=== PATIENT | female | born 1940 | race Two or more races ===

== ENCOUNTER 2019-02-21 11:49 | Inpatient (IN) | payer MEDICARE ==
[~2019-02-21] VITALS: Ht 162.6 cm; Wt 92.1 kg
[2019-02-21 04:00] VITALS: BP 83/36
[2019-02-21] MEDS ORDERED: ONDANSETRON HCL 4MG/2ML INJ IV ONE (13:15)
[2019-02-21] MEDS ORDERED: SODIUM CHLORIDE 0.9% 1,000 ML IV ONE (13:15)
[2019-02-21 13:24] LABS: HEMATOCRIT. 41.6 % (36.0-48.0); HEMOGLOBIN. 13.9 g/dL (12.0-16.0); MEAN CORPUSCULAR HEMOGLOBIN 31.3 pg (28.0-32.0); MEAN CORPUSCULAR VOLUME 93.5 fL (81.0-99.0); MEAN PLATELET VOLUME 9.2 fl (7.4-10.4); PLATELET 204 x1000/uL (130-400); RED BLOOD CELL COUNT 4.45 mill/uL (4.2-5.4); RED CELL DISTRIBUTION WIDTH 13.3 % (11.6-14.6)
[2019-02-21 13:26] LABS: CHLORIDE 109 mEq/L (98-107)
[2019-02-21 13:31] LABS: PROTHROMBIN TIME 10.2 sec (9.6-11.0)
[2019-02-21 14:13] LABS: PLATELET ESTIMATE NORMAL
[2019-02-21 16:35] LABS: CLARITY URINE CLEAR (CLEAR); COLOR URINE YELLOW (YELLOW); KETONES URINE NEGATIVE (NEGATIVE); LEUKOCYTE ESTERASE URINE 1+ (NEGATIVE); NITRITE URINE POSITIVE (NEGATIVE); OCCULT BLOOD URINE NEGATIVE (NEGATIVE); PROTEIN URINE NEGATIVE (NEGATIVE); SPECIFIC GRAVITY URINE 1.024 (1.005-1.030)
[2019-02-21] MEDS ORDERED: LEVOFLOXACIN 500MG PREMIX 100 ML IV ONE (17:15)
[2019-02-21] MEDS ORDERED: HYDROCODONE/ACETAMINOPHEN 5/325MG TABLET PO PRN (18:00)
[2019-02-21] MEDS ORDERED: MAGNESIUM/ALUMINUM HYDROXIDE/SIMETHICONE 30ML UDC PO PRN (18:00)
[2019-02-21] MEDS ORDERED: DOCUSATE SODIUM 100MG CAPSULE PO PRN (18:00)
[2019-02-21] MEDS ORDERED: CLONIDINE 0.1MG TABLET PO PRN (18:00)
[2019-02-21] MEDS ORDERED: ONDANSETRON HCL 4MG/2ML INJ IV PRN (18:00)
[2019-02-21] MEDS ORDERED: IOHEXOL-300 100 ML BOTTLE ONE (20:46)
[2019-02-21 22:58] VITALS: BP 130/72
[2019-02-22 01:30] VITALS: BP 116/37
[2019-02-22 04:00] VITALS: BP 83/36
[2019-02-22] MEDS: ACETAMINOPHEN 325MG TABLET PO PRN (04:00)
[2019-02-22 07:55] VITALS: BP 97/47
[2019-02-22 08:20] LABS: CHLORIDE 108 mEq/L (98-107)
[2019-02-22 08:26] LABS: HEMATOCRIT. 32.6 % (36.0-48.0); MEAN CORPUSCULAR HEMOGLOBIN 31.1 pg (28.0-32.0); MEAN PLATELET VOLUME 9.2 fl (7.4-10.4); PLATELET 164 x1000/uL (130-400); RED BLOOD CELL COUNT 3.55 mill/uL (4.2-5.4); RED CELL DISTRIBUTION WIDTH 13.2 % (11.6-14.6)
[2019-02-22] MEDS: SODIUM CHLORIDE 0.45% 1,000 ML IV SCH ×2 (09:46)
[2019-02-22] MEDS: ASPIRIN 81MG EC TABLET PO SCH (10:12)
[2019-02-22 12:00] VITALS: BP 102/45
[2019-02-22 16:00] VITALS: BP 112/54
[2019-02-22 17:12] LABS: PLATELET ESTIMATE NORMAL
[2019-02-22] MEDS ORDERED: LEVOFLOXACIN 500MG PREMIX 100 ML IV SCH ×2 (18:00→20:00)
[2019-02-22 20:00] VITALS: BP 118/59
[2019-02-22] MEDS: FAMOTIDINE 20MG TABLET PO SCH (21:32)
[2019-02-23] VITALS: BP 120/57
[2019-02-23] MEDS: ACETAMINOPHEN 325MG TABLET PO PRN (00:58)
[2019-02-23] MEDS: SODIUM CHLORIDE 0.45% 1,000 ML IV SCH ×2 (03:52→11:00)
[2019-02-23 04:00] VITALS: BP 151/82
[2019-02-23 07:13] LABS: BASOPHILS % 0.2 % (0.0-2.0); EOSINOPHILS % 0.7 % (0.0-5.0); HEMOGLOBIN. 11.4 g/dL (12.0-16.0); LYMPHOCYTES % 14.8 % (20.0-50.0); MEAN CORPUSCULAR HEMOGLOBIN 30.9 pg (28.0-32.0); MEAN CORPUSCULAR VOLUME 92.1 fL (81.0-99.0); MEAN PLATELET VOLUME 8.8 fl (7.4-10.4); MONOCYTES % 8.5 % (2.0-8.0); NEUTROPHILS % 75.8 % (40.0-76.0); PLATELET 149 x1000/uL (130-400); RED BLOOD CELL COUNT 3.69 mill/uL (4.2-5.4); RED CELL DISTRIBUTION WIDTH 13.1 % (11.6-14.6)
[2019-02-23 07:58] VITALS: BP 126/46
[2019-02-23 08:29] LABS: CHLORIDE 110 mEq/L (98-107)
[2019-02-23 08:38] LABS: TOTAL IRON BINDING CAPACITY 254 ug/dL (250-450)
[2019-02-23] MEDS: FAMOTIDINE 20MG TABLET PO SCH (08:58)
[2019-02-23] MEDS: ASPIRIN 81MG EC TABLET PO SCH (08:58)
[2019-02-23 10:20] VITALS: BP 126/41
== END 2019-02-23 11:40 | disposition home or self-care (01) | DRG 872 ==
LOC: ER 11:49 → SUPCPDRO 17:58 → 6EST 19:23 → ENRESERV 21:00 → 6WST 02-22 01:15
PROVIDERS: ADMIT Ophthalmology; ATTEND Ophthalmology
DX: A41.9 Sepsis, unspecified organism (principal); N39.0 Urinary tract infection, site not specified; E87.2 Acidosis; R71.0 Precipitous drop in hematocrit; E86.0 Dehydration; I95.9 Hypotension, unspecified
CPT/HCPCS: 36415; 74177; 80048; 81003; 82728; 83540; 83550; 83605; 87077; 87186; 93970; 99285; C1893; J1956; J2405; J7030; Q9967

== ENCOUNTER 2022-08-06 19:25 | Inpatient (IN) | payer MEDICARE ==
[~2022-08-06] VITALS: Ht 152.4 cm; Wt 93.0 kg
[2022-08-06] MEDS ORDERED: SODIUM CHLORIDE 0.9% 1,000 ML IV ONE (19:45)
[2022-08-06 20:27] LABS: HEMATOCRIT. 37.3 % (36.0-48.0); HEMOGLOBIN. 12.7 g/dL (12.0-16.0); MEAN CORPUSCULAR HEMOGLOBIN 31.7 pg (28.0-32.0); MEAN CORPUSCULAR VOLUME 92.8 fL (81.0-99.0); MEAN PLATELET VOLUME 8.9 fl (7.4-10.4); PLATELET 242 x1000/uL (130-400); RED BLOOD CELL COUNT 4.02 mill/uL (4.2-5.4); RED CELL DISTRIBUTION WIDTH 13.4 % (11.6-14.6)
[2022-08-06 20:35] LABS: CHLORIDE 109 mEq/L (98-107)
[2022-08-06 21:01] LABS: PLATELET ESTIMATE NORMAL
[2022-08-06] MEDS ORDERED: VANCOMYCIN 1G PREMIX 200 ML IV ONE (21:15)
[2022-08-06] MEDS ORDERED: PIPERACILLIN/TAZ 3.375G PREMIX 50 ML IV ONE (21:15)
[2022-08-06] MEDS ORDERED: SODIUM CHLORIDE 0.9% 1000ML BAG (SEPSIS BOLUS) IV ONE (21:15)
[2022-08-06] MEDS ORDERED: PIPERACILLIN/TAZ 3.375G PREMIX 50 ML IV NR (23:15)
[2022-08-06] MEDS ORDERED: VANCOMYCIN 1G PREMIX 200 ML IV NR (23:15)
[2022-08-07 04:30] VITALS: BP 132/42
[2022-08-07 08:00] VITALS: BP 138/79
[2022-08-07] MEDS ORDERED: HYDROCODONE/ACETAMINOPHEN 5/325MG TABLET PO PRN (10:00)
[2022-08-07] MEDS ORDERED: IPRATROPIUM/ALBUTEROL 0.5-3(2.5)MG/3ML NEB HHN PRN (10:00)
[2022-08-07] MEDS ORDERED: ONDANSETRON HCL 4MG/2ML INJ IV PRN (10:00)
[2022-08-07] MEDS ORDERED: ACETAMINOPHEN 325MG TABLET PO PRN ×2 (10:00)
[2022-08-07] MEDS ORDERED: DOCUSATE SODIUM 100MG CAPSULE PO PRN (10:00)
[2022-08-07] MEDS ORDERED: LORAZEPAM 0.5MG TABLET PO PRN (10:00)
[2022-08-07] MEDS ORDERED: CLONIDINE 0.1MG TABLET PO PRN (10:00)
[2022-08-07] MEDS ORDERED: IPRATROPIUM BROMIDE (0.02%) 0.5MG/2.5ML NEB HHN PRN (10:15)
[2022-08-07] MEDS ORDERED: ALBUTEROL (0.083%) 2.5MG/3ML NEB HHN PRN (10:15)
[2022-08-07] MEDS ORDERED: NALOXONE HCL 0.4MG/ML VIAL IV PRN (10:15)
[2022-08-07 12:00] VITALS: BP 100/47
[2022-08-07 16:00] VITALS: BP 131/43
[2022-08-07 20:00] VITALS: BP 118/44
[2022-08-07] MEDS: VANCOMYCIN 1G PREMIX 200 ML IV SCH (20:03)
[2022-08-07] MEDS: PIPERACILLIN/TAZOBACTAM 3.375 G in DEXTROSE 5% WATER 50 ML IV SCH (21:42)
[2022-08-07 21:44] LABS: CLARITY URINE CLEAR (CLEAR); COLOR URINE YELLOW (YELLOW); KETONES URINE NEGATIVE (NEGATIVE); LEUKOCYTE ESTERASE URINE 2+ (NEGATIVE); NITRITE URINE NEGATIVE (NEGATIVE); OCCULT BLOOD URINE NEGATIVE (NEGATIVE); PH URINE 7.5 (4.5-8.0); PROTEIN URINE TRACE (NEGATIVE); SPECIFIC GRAVITY URINE 1.017 (1.005-1.030)
[2022-08-08] VITALS: BP 101/42
[2022-08-08] MEDS: LACTATED RINGERS 1,000 ML IV SCH ×3 (02:11→17:47)
[2022-08-08 04:00] VITALS: BP 111/72
[2022-08-08 05:50] LABS: BASOPHILS % 0.3 % (0.0-2.0); EOSINOPHILS % 0.4 % (0.0-5.0); HEMATOCRIT. 32.6 % (36.0-48.0); HEMOGLOBIN. 11.1 g/dL (12.0-16.0); LYMPHOCYTES % 13.8 % (20.0-50.0); MEAN CORPUSCULAR VOLUME 91.1 fL (81.0-99.0); MONOCYTES % 9.4 % (2.0-8.0); NEUTROPHILS % 76.1 % (40.0-76.0); PLATELET 162 x1000/uL (130-400); RED BLOOD CELL COUNT 3.57 mill/uL (4.2-5.4); RED CELL DISTRIBUTION WIDTH 13.4 % (11.6-14.6)
[2022-08-08] MEDS: PIPERACILLIN/TAZOBACTAM 3.375 G in DEXTROSE 5% WATER 50 ML IV SCH ×3 (05:58→22:04)
[2022-08-08 06:55] LABS: CHLORIDE 108 mEq/L (98-107)
[2022-08-08] MEDS ORDERED: POTASSIUM CHLORIDE 20MEQ TABLET SR PO SCH (07:15)
[2022-08-08 08:00] VITALS: BP 116/69
[2022-08-08] MEDS: ENOXAPARIN 40MG/0.4ML SYR SUBCUT SCH (08:44)
[2022-08-08 12:00] VITALS: BP 114/68
[2022-08-08 16:00] VITALS: BP 134/59
[2022-08-08] MEDS: VANCOMYCIN 1G PREMIX 200 ML IV SCH (19:35)
[2022-08-08 20:00] VITALS: BP 112/44
[2022-08-09] VITALS: BP 112/39
[2022-08-09] MEDS: LACTATED RINGERS 1,000 ML IV SCH ×2 (03:45→13:17)
[2022-08-09 04:00] VITALS: BP 98/48
[2022-08-09] MEDS: PIPERACILLIN/TAZOBACTAM 3.375 G in DEXTROSE 5% WATER 50 ML IV SCH ×2 (06:05→13:17)
[2022-08-09 07:24] LABS: CHLORIDE 108 mEq/L (98-107)
[2022-08-09 08:00] VITALS: BP 122/45
[2022-08-09] MEDS: ENOXAPARIN 40MG/0.4ML SYR SUBCUT SCH (08:20)
[2022-08-09 12:00] VITALS: BP 130/56
[2022-08-09 15:09] VITALS: BP 126/66
[2022-08-09 16:00] VITALS: BP 128/59
[2022-08-09] MEDS ORDERED: LEVO750T68 MT ×3 (16:17→16:28)
[2022-08-09] MEDS ORDERED: SULF1TAB48 MT ×3 (16:17→16:28)
== END 2022-08-09 18:00 | disposition home or self-care (01) | DRG 372 ==
LOC: ER 19:36 → 7WST 22:46 → EDBEDREQ 23:08 → EDBEDREQTM 23:08
PROVIDERS: ADMIT Internal Medicine; ATTEND Internal Medicine
DX: A04.8 Other specified bacterial intestinal infections (principal); E87.20 Acidosis, unspecified; N39.0 Urinary tract infection, site not specified; I95.9 Hypotension, unspecified; Z20.822 Contact with and (suspected) exposure to COVID-19; D72.0 Genetic anomalies of leukocytes; R74.01 Elevation of levels of liver transaminase levels; B95.61 Methicillin susceptible Staphylococcus aureus infection as the cause of diseases classified elsewhere
CPT/HCPCS: 36415; 71045; 80048; 80053; 81003; 83605; 84145; 84484; 85025; 87426; 93005; 93306; 93880; 97162; 99285; J1650; J2543; J3370; J7030; J7060; J7120

== ENCOUNTER 2022-10-21 07:00 | Emergency (ER) | payer MEDICARE, MEDICAID ==
[~2022-10-21] VITALS: Ht 160 cm; Wt 99.0 kg
[~2022-10-21 07:00] MED LIST: LEVO750T68 MT; SULF1TAB48 MT
[2022-10-21] MEDS ORDERED: ACETAMINOPHEN 325MG TABLET PO ONE (08:30)
[2022-10-21 08:44] LABS: HEMATOCRIT. 32.3 % (36.0-48.0); HEMOGLOBIN. 10.8 g/dL (12.0-16.0); MEAN CORPUSCULAR HEMOGLOBIN 30.8 pg (28.0-32.0); MEAN CORPUSCULAR VOLUME 91.9 fL (81.0-99.0); MEAN PLATELET VOLUME 7.9 fl (7.4-10.4); PLATELET 195 x1000/uL (130-400); RED BLOOD CELL COUNT 3.51 mill/uL (4.2-5.4)
[2022-10-21 08:57] LABS: INR 1.2; PROTHROMBIN TIME 12.3 sec (9.6-11.0)
[2022-10-21 09:28] LABS: PLATELET ESTIMATE NORMAL
[2022-10-21 10:36] LABS: CHLORIDE 105 mEq/L (98-107)
[2022-10-21 12:17] LABS: CLARITY URINE CLOUDY (CLEAR); COLOR URINE ORANGE (YELLOW); KETONES URINE NEGATIVE (NEGATIVE); LEUKOCYTE ESTERASE URINE 3+ (NEGATIVE); NITRITE URINE NEGATIVE (NEGATIVE); OCCULT BLOOD URINE NEGATIVE (NEGATIVE); PH URINE 5.5 (4.5-8.0); PROTEIN URINE TRACE (NEGATIVE); SPECIFIC GRAVITY URINE 1.016 (1.005-1.030)
[2022-10-21] MEDS ORDERED: CEFP200T13 MT (12:27)
[2022-10-21] MEDS ORDERED: AZIT250T12 MT (12:27)
[2022-10-21 13:24] VITALS: BP 112/58
== END 2022-10-21 13:27 | disposition home or self-care (01) ==
LOC: ER 07:25
DX: N39.0 Urinary tract infection, site not specified (principal); J18.9 Pneumonia, unspecified organism
CPT/HCPCS: 36415; 71045; 80053; 81003; 84484; 85025; 93005; 99284